=== PATIENT | male | born 1960 | race Caucasian/White ===

== ENCOUNTER 2017-01-19 06:46 | Day surgery (SDC) | payer OTHER ==
[2017-01-19] VITALS (11 sets, daily range): BP systolic 110–140; BP diastolic 61–78; PULSE 53–64; TEMP 36.7–37.2; O2SAT 95–98; Ht 170.2 cm; Wt 123.0 kg
[~2017-01-19] VITALS: Ht 170.2 cm; Wt 123.0 kg
[2017-01-19] MEDS ORDERED: FENT1DIS85 TOP (07:54)
[2017-01-19] MEDS ORDERED: HYDR-3763 PO (07:54)
[2017-01-19] MEDS ORDERED: FENO134C2 PO (07:54)
[2017-01-19] MEDS ORDERED: FNTTP50 TD (07:54)
[2017-01-19] MEDS ORDERED: LISI-725 PO (07:54)
[2017-01-19] MEDS ORDERED: VENL150T33 PO (07:54)
[2017-01-19] MEDS ORDERED: ASPI325T45 PO (07:54)
[2017-01-19] MEDS ORDERED: TAMS0.4C38 PO (07:54)
[2017-01-19] MEDS ORDERED: ATOR-22 PO (07:54)
[2017-01-19] MEDS ORDERED: SOTA80TA PO (07:54)
--- NOTE | 2017-01-19 10:59 | Discharge Instructions ---
Discharge Instructions Procedure Procedure Date: Jan 19, 2017. Reason for visit: Lumbar Back Pain. Discharge Discharge Date: Jan 19, 2017. Discharge Diagnosis: Lumbar back pain Instructions Activity Recommendations: 1 Day-May resume regular activity, 48 Hours of decreased exertion, 1 Day with no exercise/sex/sports, 1 Day with no driving/ machine use Return to School/Work: limitations (light activity x 48 hours) Recommended Home Diet: Resume Previous Diet Provider Instructions: Fluoroscopic guided lumbar puncture was performed at the L4 laminectomy level. Once intrathecal positioning was confirmed iodinated contrast was injected and the patient underwent CT myelogram of the lumbar spine. The procedure was well tolerated and without immediate complication. ACTIVITY RECOMMENDATIONS: * Rest today. * Resume regular activity in one day. MEDICATIONS: * May take Tylenol or Ibuprofen as needed for pain. DIET: * Resume previous diet. SPECIAL CARE INSTRUCTIONS: Call your doctor if: * Temperature above 101 degrees F. * Pain not relieved by pain medicine ordered. * Increased drainage or redness from incision. * Notify your doctor with any questions or concerns. Call your doctor or go to the nearest Emergency Department if you experience: * Increased chest pain or shortness of breath. FOLLOW UP VISIT: Follow-up with Referring Physician as scheduled. Allergies Coded Allergies: No Known Allergies (Unverified , 01/19/17) Zora Orlando Recommendations: Call your doctor if: * Temperature above 101 degrees * Pain not relieved by pain medicine ordered * There is increased drainage or redness from any incision * You have any unanswered questions or concerns. Your Doctors Instructions noted above were prepared by provider Lalo Wilson. Patient Signature Section: Patient Instructions Signature Page Edward Tao Patient (or Guardian) Signature/Date: I have read and understand the instructions given to me by my caregivers. Caregiver/RN/Doctor Signature/Date: The above-named patient and/or guardian has received patient instructions on this date. + Original Patient Signature Page (only) stays with chart. Please make copy for patient.
[2017-01-19] MEDS ORDERED: ACETAMINOPHEN 500 MG TAB PO PRN (11:00)
--- NOTE | 2017-01-19 11:53 | DIAGNOSTIC IMAGING REPORT ---
FLUOROSCOPIC GUIDED LUMBAR PUNCTURE CLINICAL HISTORY: Low back pain. Lumbar puncture for CT myelogram. PROCEDURE: The risks, benefits, and alternatives to the procedure is discussed with the patient who voiced understanding. Written informed consent was obtained. The patient was placed prone on the fluoroscopy table. The lower back was prepped and draped in the usual sterile fashion. 1% lidocaine was used for local anesthesia. A 22-gauge spinal needle was inserted into the L4 laminectomy space, and intrathecal positioning was confirmed by return of cerebrospinal fluid into the hub of the needle. Approximately 15 cc of Isovue 200 was then injected into the thecal sac under fluoroscopic guidance. The patient tolerated the procedure well and there were no immediate complications. The patient was then transported CT for CT myelogram. Fluoroscopy time: 0.4 minutes. IMPRESSION: Successful fluoroscopic guided lumbar puncture with injection of intrathecal contrast for CT myelogram as above. There were no immediate complications. Electronically signed by: Lalo Wilson M.D. 01/19/2017 11:52 AM Dictated Date/Time: 01/19/2017 11:49 AM
--- NOTE | 2017-01-19 12:35 | DIAGNOSTIC IMAGING REPORT ---
CT MYELOGRAM OF THE LUMBAR SPINE CLINICAL HISTORY: Chronic low back pain. COMPARISON STUDY: No priors. TECHNIQUE: CT myelogram of the lumbar spine is performed following the intrathecal administration of iodinated contrast. Images were acquired from the lower thoracic spine to the sacrum and reviewed in the axial, sagittal, and coronal planes. A dose lowering technique was utilized adhering to the principles of ALARA. CT DOSE: 2184.62 mGy.cm FINDINGS: Lumbar spine: The skeletal structures are osteopenic. There is no evidence of fracture. Vertebral body height and alignment are maintained throughout the lumbar spine. There are postoperative changes from a laminectomy and posterior fusion with interposition bone graft seen from L3 to L5. Interpedicular screws are present at all levels. The orthopedic hardware appears intact. The transverse processes are intact. Small anterior osteophytes are seen from L1 through L3. Advanced degenerative endplate sclerosis is seen at L1-L2 and L2-L3. No lytic or blastic lesion is seen. There is a hemitransitional left lumbosacral segment. Intervertebral discs: There is advanced disc space narrowing at L2-L3, with moderate disc space narrowing at L1-L2. Postoperative changes suggested at the L4-L5 disc. Mild disc space narrowing is seen at the remaining levels. No large herniation is identified. Spinal cord: The central canal is well opacified with iodinated contrast. The spinal cord is suboptimally assessed by CT but is normal in morphology. The conus medullaris terminates at the level of L1. The nerve roots of the cauda equina are normal in morphology. Spinal stimulator leads are partially visualized and enter the central canal in the thoracic region. T12-L1: Unremarkable. L1-L2: There is minimal posterior disc bulge. The central canal and neural foramina are patent. L2-L3: The central canal is patent. Facet arthropathy causes moderate right neural foraminal stenosis. L3-L4: The central canal is clear. Facet arthropathy causes moderate right-sided neural foraminal stenosis. L4-L5: The central canal is widely patent. Facet arthropathy causes moderate right and mild left neural foraminal stenosis. L5-S1: There is mild narrowing of the central canal, likely on a congenital basis. Facet arthropathy causes severe left and [id number] right neural foraminal stenosis. Sacrum: Visualized sacrum and bony pelvis appear intact. Mild degenerative change and vacuum phenomenon is noted in the sacroiliac joints. Soft tissues: There is fatty atrophy of the paraspinous musculature. Atherosclerotic calcification is noted in the abdominal aorta. The partially-imaged retroperitoneal structures are otherwise grossly unremarkable but incompletely evaluated. IMPRESSION: 1. No acute bony abnormality is identified in the lumbar spine. 2. Osteopenia and postoperative change as discussed above. The orthopedic hardware appears intact. 3. There is no evidence of disc herniation or significant compromise of the central canal. 4. Degenerative change as discussed above. See discussion for detailed [id number] analysis. Dictated: 01/19/2017 11:54 AM Transcribed: 01/19/2017 12:34 PM Annabelle Electronically signed by: Lalo Wilson M.D. 01/19/2017 1:01 PM Dictated Date/Time: 01/19/2017 11:54 AM
== END 2017-01-19 15:10 | disposition home or self-care (01) ==
LOC: C.ACU 06:46
PROVIDERS: ATTEND Orthopaedic Surgery Orthopaedic Surgery of the Spine
DX: M54.5 Low back pain (principal)

== ENCOUNTER 2024-02-15 10:44 | Observation (INO) ==
[2024-02-15 11:38] LABS: Base Excess VBG -2.2 mEq/L; HCO3 VBG 23 mmol/L; Oxygen Saturation VBG 80.8 %; PCO2 VBG 41 mmHg (38-50); PO2 VBG 46 mmHg; pH VBG 7.36 (7.36-7.41)
[2024-02-15 11:40] LABS: Basophils # (auto) 0.05 K/uL (0.00-0.20); Basophils % (auto) 0.6 %; Eosinophils # (auto) 0.01 K/uL (0.00-0.50); Eosinophils % (auto) 0.1 %; Hematocrit (blood only) 44.7 % (42.0-52.0); Immature Granulocytes # (auto) 0.08 K/uL (0.01-0.20); Lymphocytes # (auto) 1.34 K/uL (1.20-3.40); Lymphocytes % (auto) 16.6 %; Mean Corpuscular Hemoglobin 32.8 pg (25.0-34.0); Mean Corpuscular Hgb Conc 35.8 g/dL (32.0-36.0); Mean Corpuscular Volume 91.6 fL (80.0-100.0); Mean Platelet Volume 10.7 fL (9.4-12.4); Monocytes # (auto) 0.83 K/uL (0.11-0.59); Monocytes % (auto) 10.3 %; Neutrophils # (auto) 5.78 K/uL (1.40-6.50); Neutrophils % (auto) 71.4 %; Platelet Count 197 K/uL (130-400); RDW Coefficient of Variation 12.8 % (11.5-14.5); RDW Standard Deviation 42.7 fL (36.4-46.3); Red Blood Count 4.88 M/uL (4.70-6.10); White Blood Count 8.09 K/ul (4.8-10.8)
--- NOTE | 2024-02-15 11:41 | Emergency Department Note ---
Impression & Plan Pneumonia, COPD (chronic obstructive pulmonary disease), Pulmonary nodules, Cough with hemoptysis ED Provider Note NAME: DAVE MCCABE AGE: 63 SEX: M : 1960 ARRIVES VIA: Walk-In INFORMANT: Patient, ED PROVIDER(S): Dave Barnes DO CHIEF COMPLAINT: Coughing HPI: The patient is a 63-year-old male who presented to the emergency department for an evaluation of cough and difficulty breathing. The patient was seen in our facility recently for similar complaints. At that time he was diagnosed with a pneumonia by CAT scan. He was placed on antibiotics. It was recommended that he stay in the hospital for inpatient management after discussion with pulmonary but the patient was requesting to be discharged home. He had a follow-up appointment with pulmonary today and continues to have taiwo mops his. He was advised to come the emergency department for further evaluation. He states that he has been compliant with the outpatient medications including the antibiotics. He denies having any dizziness. He denies having any chest pain or leg swelling. ROS: See above HPI for pertinent positives & negatives. A total of 10 systems reviewed and were otherwise negative. PAST MEDICAL HISTORY: See Below PAST SURGICAL HISTORY: See Below FAMILY HISTORY: See Below SOCIAL HISTORY: See Below HOME MEDICATIONS: See Below ALLERGIES: See Below VITALS: See Below PHYSICAL EXAMINATION: GENERAL: Patient is awake alert in no acute distress patient is resting comfortably and showing no signs of anxiety EYES: The conjunctivae are clear. The pupils are round and reactive. EARS, NOSE, MOUTH AND THROAT: The nose is without any evidence of any deformity. Mucous membranes are moist. Tongue is midline. NECK: The neck is nontender and supple. RESPIRATORY: Diminished breath sounds are noted at the right base. There is no tachypnea or conversational dyspnea. CARDIOVASCULAR: Regular rate and rhythm noted there no murmurs rubs or gallops normal S1 normal S2. GASTROINTESTINAL: The abdomen is soft. Abdomen is nontender. MUSCULOSKELETAL/EXTREMITIES: There is no evidence of gross deformity full range of motion is noted in the hips and shoulders. SKIN: There is no obvious evidence of any rash. There are no petechiae, pallor or cyanosis noted. NEUROLOGIC: Patient is awake alert and oriented x3 MEDICAL DECISION MAKING: The patient is a 63-year-old male who presented to the emergency department for an evaluation of hemoptysis and cough. The patient was seen in our facility recently for similar complaints. At that time he was diagnosed with a pneumonia. He was started on antibiotics. I did discuss his condition at that time with pulmonary. They requested that the patient stay in the hospital for inpatient management but at that time the patient was not amenable to staying in the hospital. He was discharged to home at that time and states he has been compliant with his outpatient medications. He presents back today because of ongoing symptoms. He was evaluated by pulmonary and told to come back to the emergency department for admission and possible coloscopy. I discussed the patient's laboratory and radiographic studies with him. I discussed his condition with the on-call [facility]. I will defer antibiotic choice to them. The patient's vital signs and laboratory workup was reassuring. Triage Nursing notes reviewed. Prior medical records reviewed Vital Signs: reviewed and remarkable for no significant abnormalities Differential diagnosis: Reactive airway disease, pneumonia, pneumothorax, COPD, CHF, infections, cardiac ischemia, pulmonary embolism, musculoskeletal, gastrointestinal, as well as other pathologies. ER treatment provided: See below Diagnostics interpreted by me: ECG: EKG was obtained in the emergency department. My interpretation is normal sinus rhythm at 60 bpm. There is no ectopy. There was no acute ST segment abnormalities noted. This was compared to a tracing from February 09, 2024. No changes were noted. Cardiac Monitoring: An order was placed for continuous cardiac monitoring. The monitor shows a rate of 62 bpm with sinus rhythm. Laboratory studies: As stated above and show below. Imaging studies: See below. Radiographic imaging was reviewed by myself Consultation(s): I discussed this case with Dr. Pelayo who is on-call for the [facility] group. Past Med/Surg History Problem List Right upper lobe pneumonia Acute UTI (urinary tract infection) (Acute) Pneumonia (Acute) Pulmonary nodules Nicotine dependence Chronic cough Hemoptysis (Acute) Abnormal CT scan, chest Cardiac arrhythmia (Chronic) "IRREGULAR HEARTBEAT" Hyperlipidemia (Chronic) Tobacco abuse (Chronic) CAD (coronary artery disease) (Chronic) History of intravascular stent placement (Chronic) Chronic narcotic use (Chronic) Obesity (Chronic) Battery end of life of spinal cord stimulator (Acute) HTN (hypertension) (Chronic) COPD (chronic obstructive pulmonary disease) (Chronic) Medical History Sleep apnea NON-COMPLIANT Restless leg syndrome Peripheral neuropathy GERD (gastroesophageal reflux disease) Hiatal hernia Gout H/O Osteoarthritis Degenerative disc disease Chronic back pain Surgical History S/P insertion of spinal cord stimulator History of cardiac cath X1 STENT ([facility]) 2010 H/O eye surgery FOREIGN BODY REMOVED FROM BILATERAL EYE (METAL (STEEL) AND A ROCK) History of esophagogastroduodenoscopy (EGD) History of colonoscopy History of carpal tunnel release BILATERAL Family History Mother Family hx of colon cancer Father Family history of diabetes mellitus Grandfather (Paternal) Family history of diabetes mellitus Other Allergies Asthma Cancer Diabetes Emphysema of lung Heart disease Lung disease Denies family history of Tuberculosis Social History Smoking Status: Current every day smoker Tobacco Type: Cigarettes Age Started Using Tobacco: 11; packs per day: 2; Cigarettes Per Day: 2 PPD X 50 YEARS; Second Hand Exposure: No; Do You Dip or Chew Tobacco: No; Hx Alcohol Use: No Hx Substance Use: No Preferred Language: Northern Irish Communication Ability: Effective Visual Impairment: No Limitations Hearing Ability: Normal Restuarant Crew Worker Required: No Beliefs That Will Affect Care: None marital status: Current Living Situation: Spouse current occupational status: unemployed Feels Safe at Home: Yes Assistive Devices: Cane Allergies Allergies Allergy/AdvReac Type Severity Reaction Status Date / Time Penicillins Allergy rash Verified 02/13/24 11:19 Home Meds Home Medications Medication Instructions Recorded Confirmed aspirin 325 mg tablet,delayed 325 mg PO QAM 11/21/18 02/13/24 release atorvastatin 20 mg tablet 20 mg PO HS 11/21/18 02/13/24 ezetimibe 10 mg tablet (Zetia) 10 mg PO HS 11/21/18 02/13/24 hydrocodone 10 mg-acetaminophen 1 tab PO BID PRN Pain 11/21/18 02/13/24 300 mg tablet (Vicodin HP) sotalol 80 mg tablet 80 mg PO BID 11/21/18 02/13/24 tamsulosin 0.4 mg capsule 0.4 mg PO HS 11/21/18 02/13/24 venlafaxine 150 mg 150 mg PO HS 11/21/18 11/30/21 capsule,extended release 24 hr diphenhydramine HCl 25 mg capsule 100 mg PO HS PRN ALLERGIES 02/13/24 02/13/24 (Allergy Relief (diphenhydramine)) lisinopril 20 mg tablet 40 mg PO HS 02/13/24 02/13/24 Previous Rx's Medication Instructions Recorded umeclidinium 62.5 mcg-vilanterol 1 inh inhalation DAILY #60 ea 04/01/23 25 mcg/actuation powdr for inhalation (Anoro Ellipta) cefdinir 300 mg capsule 300 mg PO BID 10 days #20 caps 02/09/24 doxycycline hyclate 100 mg tablet 100 mg PO Q12H 10 days #20 tabs 02/09/24 Results & Data (ED) Vital Signs Vital Signs - 24 hr 02/15/24 10:45 02/15/24 10:48 02/15/24 10:48 Temperature Temperature Source Pulse Rate Pulse Rate [Right Finger] 64 64 Respiratory Rate 20 18 Respiratory Effort / Characteristics Non-Labored Respiratory Depth Normal Respiratory Pattern Regular Blood Pressure Blood Pressure [Right Arm] 131/83 131/83 Blood Pressure Mean Blood Pressure Mean [Right Arm] 99 99 Pulse Oximetry 94 94 94 Oxygen Delivery Method Room Air Room Air Room Air Sepsis Recent Fever Within 48 Hours Sepsis New/Unexplained Change in Mental Status Sepsis Action Taken by Nursing 02/15/24 10:52 02/15/24 11:39 Temperature 36.6 C Temperature Source Skin Pulse Rate 65 61 Pulse Rate [Right Finger] Respiratory Rate 18 Respiratory Effort / Characteristics Respiratory Depth Respiratory Pattern Blood Pressure 144/83 H Blood Pressure [Right Arm] Blood Pressure Mean 103 Blood Pressure Mean [Right Arm] Pulse Oximetry 96 Oxygen Delivery Method Room Air Sepsis Recent Fever Within 48 Hours No Sepsis New/Unexplained Change in Mental Status No Sepsis Action Taken by Nursing No Action Required Home Medications Current Medication List: was personally reviewed by me Laboratory Data Attestation: I reviewed the patient's lab results. 02/15/24 11:24 02/15/24 11:24 Lab Results 02/15/24 Range/Units 11:24 WBC 8.09 (4.8-10.8) K/ul RBC 4.88 (4.70-6.10) M/uL Hgb 16.0 (14.0-18.0) g/dl Hct 44.7 (42.0-52.0) % MCV 91.6 (80.0-100.0) fL MCH 32.8 (25.0-34.0) pg MCHC 35.8 (32.0-36.0) g/dL RDW Std Deviation 42.7 (36.4-46.3) fL RDW Coeff of Ric 12.8 (11.5-14.5) % Plt Count 197 (130-400) K/uL MPV 10.7 (9.4-12.4) fL Immature Gran % (Auto) 1.0 % Neut % (Auto) 71.4 % Lymph % (Auto) 16.6 % [place] % (Auto) 10.3 % Eos % (Auto) 0.1 % Baso % (Auto) 0.6 % Neut # (Auto) 5.78 (1.40-6.50) K/uL Lymph # (Auto) 1.34 (1.20-3.40) K/uL [place] # (Auto) 0.83 H (0.11-0.59) K/uL Eos # (Auto) 0.01 (0.00-0.50) K/uL Baso # (Auto) 0.05 (0.00-0.20) K/uL Immature Gran # (Auto) 0.08 (0.01-0.20) K/uL PT 10.0 (9.0-12.0) Seconds INR 0.9 (0.9-1.1) APTT 27 (21-31) Seconds PTT Ratio 1.0 VBG pH 7.36 (7.36-7.41) VBG pCO2 41 (38-50) mmHg VBG pO2 46 mmHg VBG HCO3 23 mmol/L VBG O2 Saturation 80.8 % VBG Base Excess -2.2 mEq/L Sodium 136 (136-145) mmol/L Potassium 4.1 (3.5-5.1) mmol/L Chloride 105 (98-107) mmol/L Carbon Dioxide 24 (21-32) mmol/L Anion Gap 7 (3-11) BUN 20 (6-23) mg/dl Creatinine 0.72 (0.6-1.4) mg/dl Est Cr Clr Drug Dosing 139.5 ml/min Est GFR ( Amer) 114.3 ml/min Est GFR (Non-Af Amer) 98.6 ml/min BUN/Creatinine Ratio 27.8 H (10-20) Glucose 97 (70-99(Fasting)) mg/dl Lactate 0.8 (0.4-2.0) mmol/L Calcium 9.3 (8.6-10.3) mg/dl Magnesium 1.7 (1.7-2.4) mg/dl Total Bilirubin 0.5 (0.2-1.0) mg/dl Direct Bilirubin 0.1 (0-0.2) mg/dl AST 20 (13-39) U/L ALT 30 (7-52) U/L Alkaline Phosphatase 80 (34-104) U/L Troponin I High Sens 10.9 (0-20) pg/ml Total Protein 7.1 (6.0-8.3) gm/dl Albumin 4.1 (3.4-5.0) gm/dl Procalcitonin 0.02 (0-0.5) ng/ml Blood Type A Positive Antibody Screen NEGATIVE Imaging Data Attestation: I personally reviewed and interpreted this imaging study as follows: My Impression: 1 view chest x-ray was obtained in the emergency department. My interpretation is no free air, infiltrate noted on the right lung field, final report below. Radiologist's Impression: Chest X-Ray 02/15/24 10:48 XR chest 1V portable HISTORY: Sepsis COMPARISON: Chest CTA 02/09/2024. FINDINGS: No pneumothorax. The cardiac silhouette remains mildly enlarged. Thoracic spinal stimulator leads in the right shoulder prosthesis are again noted. Patchy right upper lobe airspace opacities are again noted and appear to have slightly improved. There is mild central pulmonary vascular congestion without overt edema. IMPRESSION: 1. Patchy right upper lobe airspace opacities have slightly improved. 2. Cardiomegaly and mild congestive change. ACT 112: Negative or not required by law. Electronically signed by: Wellington Sorenson M.D. 02/15/2024 12:20 PM Discharge Plan Visit Data Chief Complaint: Referred by Doctor Stated Complaint: COUGHING UP BLOOD, REF BY DOC ED Provider: Dave Barnes Prescriptions Prescriptions: No Action tamsulosin 0.4 mg capsule 0.4 mg PO HS sotalol 80 mg tablet 80 mg PO BID venlafaxine 150 mg capsule,extended release 24hr 150 mg PO HS ezetimibe [Zetia] 10 mg tablet 10 mg PO HS atorvastatin 20 mg tablet 20 mg PO HS hydrocodone-acetaminophen [Vicodin HP] 10-300 mg tablet 1 tab PO BID PRN (Reason: Pain) aspirin 325 mg tablet,delayed release (DR/EC) 325 mg PO QAM lisinopril 20 mg tablet 40 mg PO HS Anoro Ellipta 62.5-25 mcg/actuation blister with device 1 inh inhalation DAILY Qty: 60 3RF diphenhydramine HCl [Allergy Relief(diphenhydramin)] 25 mg capsule 100 mg PO HS PRN (Reason: ALLERGIES) cefdinir 300 mg capsule 300 mg PO BID 10 Days Qty: 20 0RF doxycycline hyclate 100 mg tablet 100 mg PO Q12H 10 Days Qty: 20 0RF Discharge Problem:
[2024-02-15 11:58] LABS: Albumin Level 4.1 gm/dl (3.4-5.0); BUN Creatinine Ratio 27.8 (10-20); Bilirubin Direct 0.1 mg/dl (0-0.2); Bilirubin,Total 0.5 mg/dl (0.2-1.0); Calcium 9.3 mg/dl (8.6-10.3); Creatinine Clr Calc Pharmacy 139.5 ml/min; Est GFR (African American) 114.3 ml/min; Est GFR (Non-African American) 98.6 ml/min; Magnesium 1.7 mg/dl (1.7-2.4); Potassium 4.1 mmol/L (3.5-5.1); Total Protein 7.1 gm/dl (6.0-8.3)
[2024-02-15 12:04] LABS: Troponin I High Sensitivity 10.9 pg/ml (0-20)
[2024-02-15 12:14] LABS: INR 0.9 (0.9-1.1); Partial Thromboplastin Time 27 Seconds (21-31)
--- NOTE | 2024-02-15 12:21 | XRay Report ---
XR chest 1V portable HISTORY: Sepsis COMPARISON: Chest CTA 02/09/2024. FINDINGS: No pneumothorax. The cardiac silhouette remains mildly enlarged. Thoracic spinal stimulator leads in the right shoulder prosthesis are again noted. Patchy right upper lobe airspace opacities a re again noted and appear to have slightly improved. There is mild central pulmonary vascular congest ion without overt edema. IMPRESSION: 1. Patchy right upper lobe airspace opacities have slightly improved. 2. Cardiomegaly and mild congestive change. ACT 112: Negative or not required by law. Electronically signed by: Wellington Sorenson M.D. 02/15/2024 12:20 PM
--- NOTE | 2024-02-15 12:50 | History & Physical Report ---
Date of Service February 15, 2024 Assessment & Plan (1) Cough with hemoptysis: Plan: Stop aspirin Consult pulmonology for consideration of bronchoscopy, NPO after midnight No risk factors for TB to warrant testing as discussed with pulmonology (2) Right upper lobe pneumonia: Plan: Diagnosed 02/08 Procalcitonin negative and CXR improving therefore will continue on his prior prescription of cefdinir and doxycycline (3) Tobacco abuse: Plan: Declines nicotine patch Plan Hypertension - continue amlodipine and lisinopril BPH - continue tamsulosin Paroxysmal atrial fibrillation - no anticoagulation due to hemoptysis, continue sotalol Chronic gout - no acute flare, continue allopurinol Coronary artery disease - continue atorvastatin Anxiety - continue venlafaxine COPD - no acute flare, continue maintenance inhalers Chronic back pain - continue routine pain regimen VTE Prophylaxis - chemical contraindicated, SCDs Diet - heart healthy, NPO after midnight Disposition - admit to med/tele Admission and Anticipated Discharge Date Admission Date: February 15, 2024 History of Present Illness Chief Complaint: Hemoptysis Primary Care Provider: DO Edward Cruzaver is a 63 year old male who presents to the ER on advice of his electric refrigerator servicer due to ongoing hemoptysis. He was recently seen in the emergency room on February 08 for taiwo hemoptysis with a diagnosis of right upper lobe pneumonia at that time. Admission was recommended with IV antibiotics however the patient declined and was discharged on cefdinir and doxycycline for 10 days which she is still taking. Hemoptysis initially improving when he followed up with pulmonology. But then worse again for last 2 days therefore advised by his electric refrigerator servicer to return to the ER for consideration of bronchoscopy. He reports hemoptysis now ongoing for the last 3 weeks. However this has been and intermittent issue for the last 3-4 years but this episode has stayed a lot longer. No fever or chills. No chest pain. Shortness of breath at baseline. He continues to smoke 1 pack/day. No known close contact with patient's of untreated respiratory TB, no illicit drug use, patient is not a healthcare worker, resident or employee of a homeless ch[facility] at correctional facility. Allergies Allergy/AdvReac Type Severity Reaction Status Date / Time Penicillins Allergy rash Verified 02/15/24 13:26 Home Medications Medication Instructions Recorded Confirmed Type aspirin 325 mg tablet,delayed 325 mg PO QAM 11/21/18 02/15/24 History release atorvastatin 20 mg tablet 20 mg PO HS 11/21/18 02/15/24 History ezetimibe 10 mg tablet (Zetia) 10 mg PO HS 11/21/18 02/15/24 History sotalol 80 mg tablet 80 mg PO BID 11/21/18 02/15/24 History tamsulosin 0.4 mg capsule 0.4 mg PO HS 11/21/18 02/15/24 History venlafaxine 150 mg 150 mg PO HS 11/21/18 02/15/24 History capsule,extended release 24 hr umeclidinium 62.5 mcg-vilanterol 1 inh inhalation DAILY #60 ea 04/01/23 02/15/24 Rx 25 mcg/actuation powdr for inhalation (Anoro Ellipta) cefdinir 300 mg capsule 300 mg PO BID 10 days #20 caps 02/09/24 02/15/24 Rx doxycycline hyclate 100 mg tablet 100 mg PO Q12H 10 days #20 tabs 02/09/24 02/15/24 Rx diphenhydramine HCl 25 mg capsule 100 mg PO HS PRN ALLERGIES 02/13/24 02/15/24 History (Allergy Relief (diphenhydramine)) allopurinol 100 mg tablet 100 mg PO QAM 02/15/24 02/15/24 History amlodipine 10 mg tablet 10 mg PO QAM 02/15/24 02/15/24 History hydrocodone 10 mg-acetaminophen 1 tab PO TID PRN Pain 02/15/24 02/15/24 History 325 mg tablet lisinopril 40 mg tablet 40 mg PO HS 02/15/24 02/15/24 History Past Med/Surg History Problem List (Updated 02/15/24 @ 12:56 by Background Daemon) Cough with hemoptysis (Acute) Pulmonary nodules (Acute) COPD (chronic obstructive pulmonary disease) (Acute) Pneumonia (Acute) Right upper lobe pneumonia Acute UTI (urinary tract infection) (Acute) Pneumonia (Acute) Pulmonary nodules Nicotine dependence Chronic cough Hemoptysis (Acute) Abnormal CT scan, chest Cardiac arrhythmia (Chronic) "IRREGULAR HEARTBEAT" Hyperlipidemia (Chronic) Tobacco abuse (Chronic) CAD (coronary artery disease) (Chronic) History of intravascular stent placement (Chronic) Chronic narcotic use (Chronic) Obesity (Chronic) Battery end of life of spinal cord stimulator (Acute) HTN (hypertension) (Chronic) COPD (chronic obstructive pulmonary disease) (Chronic) Medical History Sleep apnea NON-COMPLIANT Restless leg syndrome Peripheral neuropathy GERD (gastroesophageal reflux disease) Hiatal hernia Gout H/O Osteoarthritis Degenerative disc disease Chronic back pain Surgical History S/P insertion of spinal cord stimulator History of cardiac cath X1 STENT ([facility]) 2010 H/O eye surgery FOREIGN BODY REMOVED FROM BILATERAL EYE (METAL (STEEL) AND A ROCK) History of esophagogastroduodenoscopy (EGD) History of colonoscopy History of carpal tunnel release BILATERAL Family History Mother Family hx of colon cancer Father Family history of diabetes mellitus Grandfather (Paternal) Family history of diabetes mellitus Other Allergies Asthma Cancer Diabetes Emphysema of lung Heart disease Lung disease Denies family history of Tuberculosis Social History Smoking Status: Current every day smoker Tobacco Type: Cigarettes Age Started Using Tobacco: 11; packs per day: 2; Cigarettes Per Day: 1 &1/2 packs; Second Hand Exposure: No; Do You Dip or Chew Tobacco: No; Hx Alcohol Use: Yes Alcohol type: beer Hx Substance Use: No Preferred Language: Kazakh Communication Ability: Effective Visual Impairment: No Limitations Hearing Ability: Normal Pipeline Welder Required: No Beliefs That Will Affect Care: None marital status: Current Living Situation: Significant Other current occupational status: unemployed Feels Safe at Home: Yes Assistive Devices: Cane Review of Systems Review of Systems: All systems reviewed & are unremarkable except as noted in HPI & below Physical Exam Constitutional: WD/WN, vitals as above ENMT: external ear and nose normal, oropharynx normal Respiratory: normal respiratory effort, lungs clear to auscultation Cardiovascular: RRR, no murmur, no edema Gastrointestinal (Abdomen): normal bowel sounds, soft, nontender, no hepatosplenomegaly Musculoskeletal: no cyanosis or clubbing, extremities motor strength 5/5 Skin: no rashes, warm and dry Psychiatric: A+Ox3, euthymic affect Results & Data Results & Data Vital Signs (Past 12 Hours) Vital Signs Temp Pulse Pulse Resp BP BP Pulse Ox 02/15/24 11:39 61 02/15/24 10:52 36.6 C 65 18 144/83 H 96 02/15/24 10:48 64 18 131/83 94 02/15/24 10:48 94 02/15/24 10:45 64 20 131/83 94 O2 Del Method 02/15/24 11:39 02/15/24 10:52 Room Air 02/15/24 10:48 Room Air 02/15/24 10:48 Room Air 02/15/24 10:45 Room Air Laboratory Results Abnormal lab results 02/15/24 Range/Units 11:24 [place] # (Auto) 0.83 H (0.11-0.59) K/uL BUN/Creatinine Ratio 27.8 H (10-20) Diagnostic Findings XR chest 1V portable HISTORY: Sepsis COMPARISON: Chest CTA 02/09/2024. FINDINGS: No pneumothorax. The cardiac silhouette remains mildly enlarged. Thoracic spinal stimulator leads in the right shoulder prosthesis are again noted. Patchy right upper lobe airspace opacities are again noted and appear to have slightly improved. There is mild central pulmonary vascular congestion without overt edema. IMPRESSION: 1. Patchy right upper lobe airspace opacities have slightly improved. 2. Cardiomegaly and mild congestive change. Medications Administered ER medications given: None ECG Rate (beats per minute): 60 Rhythm: normal sinus Findings: no acute ischemic change Comparison ECG Date: from (February 09, 2024) Change: no significant change Code Status & VTE Plan Code Status Full VTE Prophylaxis Plan VTE Prophylaxis will be ordered: Yes PG Care Time/CCT Total # of Minutes Spent Total Time Spent with Patient: Total time spent is greater than 50% in coordination of care (as documented) at patient's floor/unit and/or counseling patient: Coding Level of Care Code 09899 INT INP/OBS CARE 2/55MIN Diagnoses Cough with hemoptysis R04.2 Right upper lobe pneumonia J18.9 Tobacco abuse Z72.0
--- NOTE | 2024-02-15 13:03 | Electrocardiogram Report ---
Test Reason : Blood Pressure : */* mmHG Vent. Rate : 60 BPM Atrial Rate : 60 BPM P-R Int : 194 ms QRS Dur : 94 ms QT Int : 452 ms P-R-T Axes : 63 17 81 degrees QTcB Int : 452 ms Normal sinus rhythm Normal ECG When compared with ECG of 09-Feb-2024 11:03, No significant change was found Confirmed by Eugene Zayas ([id number]) on 02/15/2024 1:03:37 PM Referred By: Confirmed By: Eugene Zayas
--- NOTE | 2024-02-15 14:22 | Pulmonary Consultation ---
Date of Consultation February 15, 2024 Assessment & Plan (1) Cough with hemoptysis: (2) Pulmonary nodules: (3) COPD (chronic obstructive pulmonary disease): (4) Right upper lobe pneumonia: (5) Chronic cough: Plan CTA chest 02/09/2024 personally reviewed: Mosaicism appreciated bilaterally upper and lower lobes Consolidative process appreciated in the right upper lobe anteriorly Multiple pulmonary nodules appreciated bilaterally No significant mediastinal lymphadenopathy --Hemoptysis Has been going on for a while but got worse in the last 3-4 weeks Differential includes irritable lobe pneumonia bronchitis Patient not on any blood thinners at home PT/INR/PTT within normal limit, platelets within normal limit -- Right upper lobe pneumonia Diagnosed 02/09/2024, was discharged on Ceftin as well as doxycycline for 10 days Continue with antibiotics Procalcitonin negative COVID-19, influenza A/B as well as RSV negative on 02/09/2024 --COPD On Anoro at home --Chronic opioid use for lower back pain Takes up to 3 pills a day Plan: Cough suppressant medication [id number] Hold anticoagulation including aspirin for bronchoscopy tomorrow. Given the history of opioid use, it is better for the patient to have anesthesia involved. Will do the bronchoscopy in OR For pneumonia recommend completing the course of cefdinir for 10-14 days since 02/09/2024 Please note the above document was generated using voice recognition software. It may contain grammatical, syntax or spelling errors.Any formal questions or concerns about the content, text or information contained within the body of this dictation should be directly addressed to the provider for clarification. History of Present Illness History of Present Illness 63-year-old male comes to the hospital with complaints of hemoptysis Past medical history: COPD, anxiety/depression, hypertension, dyslipidemia Pulmonary consulted for the same At the time of examination patient was not in any respiratory distress. Saturation was 96% on room air, heart rate in the mid 60s with systolic blood pressure in the 140s He stated that he has been having issues with hemoptysis going on 2 years but it has gotten worse in the last 3-4 weeks. He is bringing up copious amount of bright red blood whenever he coughs. He was given doxycycline when he came to the ER on 02/09/2024, he has finished 6 days of it and has 4 days still remaining. Denies any chest pain. Denies any headache No fever or chills right now No unusual headache or blurry vision Denies any unintentional weight loss Social history:> [id number] smoking history, currently smoking a pack a day. Used to work in [employer] Allergies Allergy/AdvReac Type Severity Reaction Status Date / Time Penicillins Allergy rash Verified 02/15/24 13:26 Home Medications Medication Instructions Recorded Confirmed Type aspirin 325 mg tablet,delayed 325 mg PO QAM 11/21/18 02/15/24 History release atorvastatin 20 mg tablet 20 mg PO HS 11/21/18 02/15/24 History ezetimibe 10 mg tablet (Zetia) 10 mg PO HS 11/21/18 02/15/24 History sotalol 80 mg tablet 80 mg PO BID 11/21/18 02/15/24 History tamsulosin 0.4 mg capsule 0.4 mg PO HS 11/21/18 02/15/24 History venlafaxine 150 mg 150 mg PO HS 11/21/18 02/15/24 History capsule,extended release 24 hr umeclidinium 62.5 mcg-vilanterol 1 inh inhalation DAILY #60 ea 04/01/23 02/15/24 Rx 25 mcg/actuation powdr for inhalation (Anoro Ellipta) cefdinir 300 mg capsule 300 mg PO BID 10 days #20 caps 02/09/24 02/15/24 Rx doxycycline hyclate 100 mg tablet 100 mg PO Q12H 10 days #20 tabs 02/09/24 02/15/24 Rx diphenhydramine HCl 25 mg capsule 100 mg PO HS PRN ALLERGIES 02/13/24 02/15/24 History (Allergy Relief (diphenhydramine)) allopurinol 100 mg tablet 100 mg PO QAM 02/15/24 02/15/24 History amlodipine 10 mg tablet 10 mg PO QAM 02/15/24 02/15/24 History hydrocodone 10 mg-acetaminophen 1 tab PO TID PRN Pain 02/15/24 02/15/24 History 325 mg tablet lisinopril 40 mg tablet 40 mg PO HS 02/15/24 02/15/24 History Patient History Medical History Sleep apnea NON-COMPLIANT Restless leg syndrome Peripheral neuropathy GERD (gastroesophageal reflux disease) Hiatal hernia Gout H/O Osteoarthritis Degenerative disc disease Chronic back pain Surgical History S/P insertion of spinal cord stimulator History of cardiac cath X1 STENT ([facility]) 2010 H/O eye surgery FOREIGN BODY REMOVED FROM BILATERAL EYE (METAL (STEEL) AND A ROCK) History of esophagogastroduodenoscopy (EGD) History of colonoscopy History of carpal tunnel release BILATERAL Family History Mother Family hx of colon cancer Father Family history of diabetes mellitus Grandfather (Paternal) Family history of diabetes mellitus Other Allergies Asthma Cancer Diabetes Emphysema of lung Heart disease Lung disease Denies family history of Tuberculosis Social History Smoking Status: Current every day smoker Tobacco Type: Cigarettes Age Started Using Tobacco: 11; packs per day: 2; Cigarettes Per Day: 2 PPD X 50 YEARS; Second Hand Exposure: No; Do You Dip or Chew Tobacco: No; Hx Alcohol Use: No Hx Substance Use: No Preferred Language: Armenian Communication Ability: Effective Visual Impairment: No Limitations Hearing Ability: Normal Risk Compliance Analyst Required: No Beliefs That Will Affect Care: None marital status: Current Living Situation: Spouse current occupational status: unemployed Feels Safe at Home: Yes Assistive Devices: Cane Review of Systems 2 Review of Systems: All systems reviewed & are unremarkable except as noted in HPI & below Physical Exam 2 Physical Exam: Constitutional: No acute distress HEENT: EOMI, PERRLA Respiratory system: Good air entry bilaterally, no wheeze, no rhonchi, no crackles CVS: S1-S2 positive, no murmurs or gallops Abdomen: Soft, nontender, nondistended, positive bowel sounds x4, obese Extremities: +2 pulses bilaterally radialis/ dorsalis pedis, no cyanosis, no edema Neuro: Awake alert oriented x3 Psych: Normal mood and affect G/U: No Thomas Skin: no rashes, warm and dry Lymphatic: no cervical or axillary lymphadenopathy Results & Data Results & Data Vital Signs (Past 12 Hours) Vital Signs Temp Pulse Pulse Resp BP BP Pulse Ox 02/15/24 11:39 61 02/15/24 10:52 36.6 C 65 18 144/83 H 96 02/15/24 10:48 64 18 131/83 94 02/15/24 10:48 94 02/15/24 10:45 64 20 131/83 94 O2 Del Method 02/15/24 11:39 02/15/24 10:52 Room Air 02/15/24 10:48 Room Air 02/15/24 10:48 Room Air 02/15/24 10:45 Room Air Laboratory Results 02/15/24 11:24 02/15/24 11:24 PG Care Time/CCT Total # of Minutes Spent Total Time Spent with Patient: Total time spent is greater than 50% in coordination of care (as documented) at patient's floor/unit and/or counseling patient: Coding Level of Care Code 54901 INT INP/OBS CARE 3/75MIN Diagnoses Cough with hemoptysis R04.2 Pulmonary nodules R91.8 COPD (chronic obstructive pulmonary disease) J44.9 Right upper lobe pneumonia J18.9 Chronic cough R05.3
[2024-02-15] MEDS ORDERED: ACETAMINOPHEN 325 MG TAB PO PRN (15:43)
[2024-02-15] MEDS ORDERED: diphenhydrAMINE Capsule 25 MG CAP PO PRN (15:54)
[2024-02-15] MEDS ORDERED: HYDROcodone/ACETAMINOPHEN 10/325 TAB PO PRN (15:54)
[2024-02-15] MEDS: VENLAFAXINE HCL XR 150 MG CAPXR PO SCH (22:12)
[2024-02-15] MEDS: TAMSULOSIN HCL 0.4 MG CAP PO SCH (22:16)
[2024-02-15] MEDS: lisinopril 40 MG TAB PO SCH (22:17)
[2024-02-15] MEDS: CEFDINIR 300 MG CAP PO SCH (22:17)
[2024-02-15] MEDS: ATORVASTATIN 20 MG TAB PO SCH (22:17)
[2024-02-15] MEDS: SOTALOL HCL 80 MG TAB PO SCH (22:17)
[2024-02-15] MEDS: EZETIMIBE 10 MG TAB PO SCH (22:17)
[2024-02-15] MEDS: DOXYCYCLINE HYCLATE 100 MG CAP PO SCH (22:18)
[2024-02-16] MEDS: guaiFENesin/DEXTROM SYRUP 200MG/20MG 10ML UDC PO SCH (03:10)
--- NOTE | 2024-02-16 07:26 | Hospitalist Progress Note ---
Date of Service February 16, 2024 Assessment & Plan (1) Cough with hemoptysis: Plan: 63 y/o man on aspirin for history of coronary artery disease with remote stent, recently started treatment for RUL pneumonia (doxycycline, cefdinir) on 02/08, admitted with hemoptysis the hemoptysis is an acute on chronic problem he says he has had many episodes over several years but this current episode has been more prolonged than usual. Denies any epistaxis hematemesis or other potential source of bleeding. Has not had any chest pain or dyspnea. He has been followed by Dr. Olvera in pulmonary clinic and he has had screening chest CTs recently in 2022 and December 2023. he does have emphysema with some postinflammatory scarring of the right upper lobe and stable multiple solid pulmonary nodules seen on 12/2023 CT. CTA chest 02/08 negative for pulmonary embolism, limited quality PE study, progressive right upper lobe patchy airspace opacities consistent with any pneumonia. Stop aspirin Consulted pulmonology, bronchoscopy completed today see procedure note, discussed with Dr. Hanson, there was no clear source of bleeding although blood was present bilaterally, biopsies were taken from 2 areas of the right upper lobe 1 may have been a clot versus endobronchial lesion the other was an endobronchial lesion. - Follow-up pathology, cytology, cultures from BAL - multiple rheumatology labs drawn today per Dr. Hanson's recommendations - reviewed follow-up chest x-ray after bronchoscopy, no evidence of pneumothorax No risk factors for TB to warrant testing as discussed with pulmonology Mr. Tao insisted on discharge home today, although I consider this an irregular discharge because I counseled him and rather observe him overnight and make sure that he is stable with respect to his hemoptysis. He says he has had it many times and he is not going to stay here and wait around for results doing nothing. He will complete his oral antibiotics course for pneumonia. I warned him about risks of massive hemoptysis which could include respiratory failure and counseled him to seek immediate medical attention were he to have worsening hemoptysis, chest pain, dyspnea. his was also present. nevertheless I think it is reasonably low risk because no discrete bleeding source was identified on bronchoscopy because of the chronicity of the problem. He has a follow-up appointment scheduled with Dr. Ramirez on 03/12, we will see whether this can be moved up to about 2 weeks from now (2) Right upper lobe pneumonia: Plan: Diagnosed 02/08 Procalcitonin negative and CXR improving therefore will continue on his prior prescription of cefdinir and doxycycline through 02/18 (3) Tobacco abuse: Plan: Declines nicotine patch Counseled cessation Plan CAD - hx stent in 2009. HOLD aspirin until hemoptysis resolved, cont atorvastatin Hypertension - continue amlodipine and lisinopril BPH - continue tamsulosin Paroxysmal atrial fibrillation - no anticoagulation due to hemoptysis, continue sotalol Chronic gout - no acute flare, continue allopurinol Anxiety - continue venlafaxine COPD - no acute flare, continue maintenance inhalers Chronic back pain - continue routine pain regimen JENNY - does not use CPAP Admission and Anticipated Discharge Date Admission Date: February 15, 2024 Subjective I saw Mr. Tao following his bronchoscopy and he states that he continues to have blood-tinged sputum. He says he has had this for many years on and off and this episode is similar however it has been longer lasting than previously. He has a sensation of blood or mucus coming up on the right side of his throat and then he coughs. he does have a longstanding smoking history and continues to smoke. He does not think that the blood is coming from his nasopharynx or oropharynx has not had any epistaxis or hematemesis. He does not have any chest pain and is not short of breath Physical Exam 2 Physical Exam: PHYSICAL EXAMINATION Last 24h vital signs reviewed, see documentation in flowsheet General: comfortable appearing, no distress, sitting on edge of bed HEENT: Normocephalic, atraumatic, pupils round and equal, sclerae anicteric, no conjunctival injection, moist mucus membranes Lungs: Normal respiratory effort. coarse breath sounds right upper lobe greater than left upper lobe no wheezing. frequent coughing with blood-streaked sputum Heart: Regular rate and rhythm, no murmurs. No JVD Abdomen: Soft, nontender, nondistended. Bowel sounds present. Extremities: Warm, dry, well-perfused. trace lower extremity edema. Neuro: Alert and oriented x 4, face symmetric, moves 4 extremities well Psych: Normal affect and behavior Results & Data Results & Data Vital Signs (Past 12 Hours) Vital Signs Temp Pulse Pulse Resp BP Pulse Ox O2 Del Method 02/16/24 03:15 36.3 C L 61 18 122/73 93 Room Air 02/16/24 00:55 36.6 C 63 18 145/76 H 95 Room Air 02/16/24 00:00 63 02/15/24 23:46 Room Air 02/15/24 19:45 37.0 C 60 18 156/80 H 94 Room Air Laboratory Results 02/15/24 11:24 02/15/24 11:24 PG Care Time/CCT Total # of Minutes Spent Total Time Spent with Patient: Total time spent is greater than 50% in coordination of care (as documented) at patient's floor/unit and/or counseling patient: Coding Level of Care Code None Diagnoses Cough with hemoptysis R04.2 Right upper lobe pneumonia J18.9 Tobacco abuse Z72.0
[2024-02-16 07:53] LABS: Basophils # (auto) 0.05 K/uL (0.00-0.20); Basophils % (auto) 0.6 %; Eosinophils # (auto) 0.01 K/uL (0.00-0.50); Eosinophils % (auto) 0.1 %; Hematocrit (blood only) 43.7 % (42.0-52.0); Hemoglobin 15.2 g/dl (14.0-18.0); Immature Granulocytes # (auto) 0.07 K/uL (0.01-0.20); Immature Granulocytes % (auto) 0.9 %; Lymphocytes # (auto) 1.11 K/uL (1.20-3.40); Lymphocytes % (auto) 14.3 %; Mean Corpuscular Hemoglobin 31.9 pg (25.0-34.0); Mean Corpuscular Hgb Conc 34.8 g/dL (32.0-36.0); Mean Corpuscular Volume 91.6 fL (80.0-100.0); Monocytes # (auto) 0.78 K/uL (0.11-0.59); Monocytes % (auto) 10.1 %; Neutrophils # (auto) 5.74 K/uL (1.40-6.50); Platelet Count 189 K/uL (130-400); RDW Coefficient of Variation 12.9 % (11.5-14.5); RDW Standard Deviation 43.8 fL (36.4-46.3); Red Blood Count 4.77 M/uL (4.70-6.10); White Blood Count 7.76 K/ul (4.8-10.8)
--- NOTE | 2024-02-16 08:01 | Pulmonology Progress Note ---
Date of Service February 16, 2024 Assessment & Plan (1) Cough with hemoptysis: (2) Pulmonary nodules: (3) COPD (chronic obstructive pulmonary disease): (4) Right upper lobe pneumonia: (5) Chronic cough: Plan CTA chest 02/09/2024 personally reviewed: Mosaicism appreciated bilaterally upper and lower lobes Consolidative process appreciated in the right upper lobe anteriorly Multiple pulmonary nodules appreciated bilaterally No significant mediastinal lymphadenopathy --Hemoptysis Has been going on for a while but got worse in the last 3-4 weeks Differential includes irritable lobe pneumonia bronchitis Patient not on any blood thinners at home PT/INR/PTT within normal limit, platelets within normal limit -- Right upper lobe pneumonia Diagnosed 02/09/2024, was discharged on Ceftin as well as doxycycline for 10 days Continue with antibiotics Procalcitonin negative COVID-19, influenza A/B as well as RSV negative on 02/09/2024 --COPD On Anoro at home --Chronic opioid use for lower back pain Takes up to 3 pills a day Plan: Cough suppressant medication [id number] For bronchoscopy today in the OR For pneumonia recommend completing the course of cefdinir for 10-14 days since 02/09/2024 Please note the above document was generated using voice recognition software. It may contain grammatical, syntax or spelling errors.Any formal questions or concerns about the content, text or information contained within the body of this dictation should be directly addressed to the provider for clarification. Admission and Anticipated Discharge Date Admission Date: February 15, 2024 Subjective Patient seen and examined at bedside note that he is too weak Still complaining of cough with some hemoptysis No chest pain, no headache, no nausea, no vomiting Has been afebrile and shortness of breath is at baseline Review of Systems 2 Review of Systems: All systems reviewed & are unremarkable except as noted in Subjective Physical Exam 2 Physical Exam: Constitutional: No acute distress HEENT: EOMI, PERRLA Respiratory system: Good air entry bilaterally, no wheeze, no rhonchi, no crackles CVS: S1-S2 positive, no murmurs or gallops Abdomen: Soft, nontender, nondistended, positive bowel sounds x4, obese Extremities: +2 pulses bilaterally radialis/ dorsalis pedis, no cyanosis, no edema Neuro: Awake alert oriented x3 Psych: Normal mood and affect G/U: No Thomas Skin: no rashes, warm and dry Lymphatic: no cervical or axillary lymphadenopathy Results & Data Results & Data Vital Signs (Past 12 Hours) Vital Signs Temp Pulse Pulse Resp BP Pulse Ox O2 Del Method 02/16/24 03:15 36.3 C L 61 18 122/73 93 Room Air 02/16/24 00:55 36.6 C 63 18 145/76 H 95 Room Air 02/16/24 00:00 63 02/15/24 23:46 Room Air Laboratory Results 02/16/24 05:46 PG Care Time/CCT Total # of Minutes Spent Total Time Spent with Patient: Total time spent is greater than 50% in coordination of care (as documented) at patient's floor/unit and/or counseling patient: Coding Level of Care Code 55709 SUB INP/OBS CARE 3/50MIN Diagnoses Cough with hemoptysis R04.2 Pulmonary nodules R91.8 COPD (chronic obstructive pulmonary disease) J44.9 Right upper lobe pneumonia J18.9 Chronic cough R05.3
--- NOTE | 2024-02-16 08:09 | Anesthesiology Consultation ---
Date of Service February 16, 2024 History Surgery Operation Date: 02/16/24 09:45 Proposed Procedures p [facility] Height/Weight Height: 5 ft 7 in Weight: 138.4 kg Allergies Allergy/AdvReac Type Severity Reaction Status Date / Time Penicillins Allergy rash Verified 02/15/24 13:26 Medications Home Medications Medication Instructions Recorded Confirmed Last Taken aspirin 325 mg tablet,delayed 325 mg PO QAM 11/21/18 02/15/24 02/15/24 release atorvastatin 20 mg tablet 20 mg PO HS 11/21/18 02/15/24 02/14/24 ezetimibe 10 mg tablet (Zetia) 10 mg PO HS 11/21/18 02/15/24 02/14/24 sotalol 80 mg tablet 80 mg PO BID 11/21/18 02/15/24 02/15/24 tamsulosin 0.4 mg capsule 0.4 mg PO HS 11/21/18 02/15/24 02/14/24 venlafaxine 150 mg 150 mg PO HS 11/21/18 02/15/24 02/14/24 capsule,extended release 24 hr umeclidinium 62.5 mcg-vilanterol 1 inh inhalation DAILY #60 ea 04/01/23 02/15/24 02/15/24 25 mcg/actuation powdr for inhalation (Anoro Ellipta) cefdinir 300 mg capsule 300 mg PO BID 10 days #20 caps 02/09/24 02/15/24 02/15/24 doxycycline hyclate 100 mg tablet 100 mg PO Q12H 10 days #20 tabs 02/09/24 02/15/24 02/15/24 diphenhydramine HCl 25 mg capsule 100 mg PO HS PRN ALLERGIES 02/13/24 02/15/24 Unknown (Allergy Relief (diphenhydramine)) allopurinol 100 mg tablet 100 mg PO QAM 02/15/24 02/15/24 02/15/24 amlodipine 10 mg tablet 10 mg PO QAM 02/15/24 02/15/24 02/15/24 hydrocodone 10 mg-acetaminophen 1 tab PO TID PRN Pain 02/15/24 02/15/24 Unknown 325 mg tablet lisinopril 40 mg tablet 40 mg PO HS 02/15/24 02/15/24 02/14/24 Active Medications Generic Name Dose Route Start Last Admin Trade Name Ed PRN Reason Stop Dose Admin Atorvastatin Calcium 20 mg 02/15/24 21:00 02/15/24 22:17 Atorvastatin 20 Mg Tab PO 03/16/24 20:59 20 mg HS [place] Administration Cefdinir 300 mg 02/15/24 21:00 02/15/24 22:17 Cefdinir 300 Mg Cap PO 02/19/24 20:59 300 mg BID [place] Administration Protocol Doxycycline Hyclate 100 mg 02/15/24 21:00 02/15/24 22:18 Doxycycline Hyclate 100 Mg Cap PO 02/19/24 20:59 100 mg BID [place] Administration Ezetimibe 10 mg 02/15/24 21:00 02/15/24 22:17 Ezetimibe 10 Mg Tab PO 03/16/24 20:59 10 mg HS [place] Administration Guaifenesin/Dextromethorphan 10 ml 02/15/24 22:00 02/16/24 06:31 Guaifenesin/Dextrom Syrup 200mg/20mg 10ml Udc PO 03/16/24 21:59 10 ml Q8 [place] Administration Lisinopril 40 mg 02/15/24 21:00 02/15/24 22:17 Lisinopril 40 Mg Tab PO 03/16/24 20:59 40 mg HS [place] Administration Sotalol HCl 80 mg 02/15/24 21:00 02/15/24 22:17 Sotalol Hcl 80 Mg Tab PO 03/16/24 20:59 80 mg BID [place] Administration Tamsulosin HCl 0.4 mg 02/15/24 21:00 02/15/24 22:17 Tamsulosin Hcl 0.4 Mg Cap PO 03/16/24 20:59 0.4 mg HS [place] Administration Venlafaxine HCl 150 mg 02/15/24 21:00 02/15/24 22:12 Venlafaxine Hcl Xr 150 Mg Capxr PO 03/16/24 20:59 Not Given HS [place] Past Medical History Medical History Sleep apnea NON-COMPLIANT Restless leg syndrome Peripheral neuropathy GERD (gastroesophageal reflux disease) Hiatal hernia Gout H/O Osteoarthritis Degenerative disc disease Chronic back pain Past Family History Family History Mother Family hx of colon cancer Father Family history of diabetes mellitus Grandfather (Paternal) Family history of diabetes mellitus Other Allergies Asthma Cancer Diabetes Emphysema of lung Heart disease Lung disease Denies family history of Tuberculosis Past Surgical History Surgical History S/P insertion of spinal cord stimulator History of cardiac cath X1 STENT ([facility] [place]) 2010 H/O eye surgery FOREIGN BODY REMOVED FROM BILATERAL EYE (METAL (STEEL) AND A ROCK) History of esophagogastroduodenoscopy (EGD) History of colonoscopy History of carpal tunnel release BILATERAL Social History Smoking Status: Current every day smoker tobacco type: cigarettes Smoking cigarettes per day: 1 &1/2 packs Do You Dip or Chew Tobacco: No Hx Alcohol Use: Yes Alcohol type: beer alcohol intake frequency: 3 or more drinks per day Alcohol Intake Frequency Comment: 15-20/day Hx Substance Use: No substance use type: does not use Physical Exam Vital Signs Last Vital Signs Temp 37 C 02/16/24 08:03 Pulse 63 02/16/24 08:03 Resp 16 02/16/24 08:03 BP 125/80 02/16/24 08:03 Pulse Ox 95 02/16/24 08:03 O2 Del Method Room Air 02/16/24 08:03 Testing Laboratory Results 02/16/24 05:46 PT 10.0 Seconds (9.0-12.0) 02/15/24 11:24 INR 0.9 (0.9-1.1) 02/15/24 11:24 APTT 27 Seconds (21-31) 02/15/24 11:24 Blood Type A Positive 02/15/24 11:24 Antibody Screen NEGATIVE 02/15/24 11:24 02/15/24 Unknown Gram Stain - Final Sputum, Expectorated Sputum Culture - Final Electrocardiogram Findings: + NSR @ Pulmonary Function Test Date: 04/10/23 Findings: + other (normal spirometry; DLCO)
[2024-02-16] MEDS ORDERED: fentaNYL citrate PF 100 MCG/2 ML VIAL ONE (08:12)
[2024-02-16] MEDS ORDERED: MIDAZOLAM HCL 1 MG/ML 2ML VIAL ONE (08:12)
[2024-02-16] MEDS ORDERED: LIDOCAINE 2% 2 ML VIAL/AMP(20MG/ML) INFIL ONE ×2 (08:16→09:11)
[2024-02-16] MEDS ORDERED: PROPOFOL IV EMULSION 10 MG/ML 20 ML VIAL IV ONE ×2 (08:16→09:11)
[2024-02-16 08:17] LABS: BUN Creatinine Ratio 22.9 (10-20); Calcium 8.8 mg/dl (8.6-10.3); Creatinine Clr Calc Pharmacy 143.3 ml/min; Est GFR (African American) 115.6 ml/min; Est GFR (Non-African American) 99.7 ml/min
[2024-02-16] MEDS ORDERED: GLYCOPYRROLATE 0.2 MG/ML VIAL ONE (08:19)
[2024-02-16] MEDS ORDERED: DEXAMETHASONE SOD INJ 4 MG/ML VIAL ONE ×3 (08:19→09:54)
[2024-02-16] MEDS ORDERED: ONDANSETRON INJ 2 MG/ML 2 ML VIAL ONE (08:19)
[2024-02-16] MEDS ORDERED: ROCURONIUM BROMIDE 10 MG/ML 5 ML VIAL IV ONE ×3 (08:19→09:54)
[2024-02-16] MEDS ORDERED: PHENYLEPHRINE HCL 10 MG/ML VIAL ONE (08:22)
[2024-02-16] MEDS: LACTATED RINGER'S 1,000 ML IV SCH (08:56)
[2024-02-16] MEDS ORDERED: fentaNYL citrate PF 100 MCG/2 ML VIAL IV PRN (09:27)
[2024-02-16] MEDS ORDERED: DROPERIDOL 5 MG/2 ML VIAL IV PRN (09:27)
[2024-02-16] MEDS ORDERED: ATROPINE SULFATE 0.1 MG/ML 10ML SYR IV PRN (09:27)
[2024-02-16] MEDS ORDERED: ePHEDrine sulfate 50 MG/ML AMP IV PRN (09:27)
[2024-02-16] MEDS ORDERED: SUCCINYLCHOLINE CHLORIDE 20 MG/ML 10 ML VIAL IV ONE (09:54)
[2024-02-16] MEDS ORDERED: SUGAMMADEX SODIUM 200 MG/2 ML VIAL IV ONE ×2 (10:07)
--- NOTE | 2024-02-16 10:40 | Procedure Note ---
Procedure Note: Bronchoscopy Procedure PREOPERATIVE DIAGNOSIS: Hemoptysis POSTOPERATIVE DIAGNOSIS: Hemoptysis PROCEDURE PERFORMED: Flexible fiberoptic bronchoscopy with bronchial lavage and transbronchial biopsies COMPLICATIONS: None. INDICATION: To find out the source of hemoptysis PROCEDURE: After obtaining an informed consent, the patient was brought to the OR. The patient had appropriate oxygen, blood pressure, heart rate, and respiratory rate monitoring applied and monitored continuously throughout the procedure. Sedation was managed by anesthesia, please refer to their note Bronchoscope was advanced with the ETT. As soon as I entered the ET tube I could see blood around the ETT tube. There was blood appreciated at the nancy as well as the right main and the left main bronchus. I gradually suctioned the left lung first followed by the right lung to make it clear. After suctioning the trachea appeared normal.The bronchoscope was then advanced through the nancy, which was sharp. The scope was then advanced into the right main stem and each segment, subsegement in the right upper lobe, right middle lobe and right lower lobe were visualized. There was copious amount of bloody secretions which were suctioned. There were no other findings including evidence of mass, anatomic distortions, or hemorrhage. The bronchoscope was subsequently withdrawn and advanced into the left mainstem. Again, each segment and subsegment was well visualized. No specific masses or other lesions were identified throughout the tracheobronchial tree on the left. There was significant amount of bloody secretion which were suctioned Right upper lobe anterior segment there was an attached clot versus lesion, forceps biopsy were taken. Right upper lobe apical segment, there was endobronchial lesion appreciated, multiple forceps biopsy were taken The bronchoscope was then wedged in the right upper lobe apical segment and bronchoalveolar lavage samples were obtained. 120 ml of saline was instilled and 45 ml of fluid was aspirated back.The bronchoscope was withdrawn and the area was suctioned clear. I again visualized each segment and subsegment of the right upper right middle right lower as well as left upper, lingula and left lower. No clear site of bleeding was appreciated. The bronchoscope was then withdrawn to the mainstem. The area was suctioned clear. The bronchoscope was then withdrawn gradually while retracting the ET tube to make sure there was no lesion in the upper trachea. No lesion to cause bleeding was appreciated within the upper trachea. The patient tolerated the procedure well without evidence of desaturation or complications. Bronchoalveolar lavage samples were sent for cell count, Gram stain and bacterial culture, AFB culture and smear, fungal culture and smearand cytology. Transbronchial biopsies were sent for pathology. Recommendations: Follow-up micro, cytology and pathology Follow-up chest x-ray Please note the above document was generated using voice recognition software. It may contain grammatical, syntax or spelling errors.Any formal questions or concerns about the content, text or information contained within the body of this dictation should be directly addressed to the provider for clarification. [facility] [place] Codes (Charges) Pulmonary/Thoracic Procedure 1: Pulmonary and Thoracic: 13714 Dx bronchoscopy/BAL Procedure 2: Pulmonary and Thoracic: 15792 Bronchoscopy w bronchial or endobronchial bx
--- NOTE | 2024-02-16 11:10 | XRay Report ---
SINGLE VIEW CHEST CLINICAL HISTORY: Status post bronchoscopy. FINDINGS: 2 AP, portable, upright chest radiographs are compared to study dated 02/15/2024 and correla corky with chest CT dated 02/09/2024. The examination is degraded by portable technique and apical lordo tic positioning. The heart is mildly enlarged. The pulmonary vasculature is noncongested. Chronic int erstitial thickening similar to previous. There is dense airspace consolidation in the right upper lars ng. Left lung appears clear. No large pleural effusion is seen. No pneumothorax is seen. The skeletal structures are osteopenic. The bony thorax is grossly intact. Arthritic changes seen in the left joseph ulder. Intrathecal leads project over the lower thoracic spine. IMPRESSION: 1. No pneumothorax is identified post procedure. 2. There is dense airspace consolidation in the right upper lung, which could represent postbiopsy ch maddi/hemorrhage. This is new from 02/15/2024 and a superimposed pneumonia is not excluded. Clinical co rrelation will be required and radiographic follow-up to resolution is recommended. ACT 112: Negative or not required by law. Electronically signed by: Lalo Wilson M.D. 02/16/2024 11:08 AM
[2024-02-16] MEDS: ALBUT/IPRATROP 3MG/0.5MG NEB 3 ML VIAL NEB PRN (11:26)
[2024-02-16] MEDS: methylPREDNISolone 40 MG in SYRINGE 0 ML IV ONE (11:45)
[2024-02-16] MEDS: UMECLIDINIUM/VILANTEROL 62.5/25MCG 7 PUFFS/INHALER INH SCH (13:14)
[2024-02-16] MEDS: allopurinoL 100 MG TAB PO SCH (13:15)
[2024-02-16] MEDS: amLODIPine BESYLATE 5 MG TAB PO SCH (13:15)
[2024-02-16 13:40] LABS: Fluid Mono/Macrophage 86 %; Lymphocyte Body Fluid Man 2 %; Neutrophil Body Fluid Man 12 %
[2024-02-16] MEDS: VENLAFAXINE HCL XR 150 MG CAPXR PO SCH (13:49)
--- NOTE | 2024-02-16 14:45 | Anesthesiology Progress Note ---
Date of Service February 16, 2024 Anesthesia Post Procedure Vital Signs Vital Signs: Temp Pulse Pulse Pulse Resp BP BP 02/16/24 13:28 02/16/24 12:55 36.9 C 71 20 124/75 02/16/24 12:20 71 17 121/77 02/16/24 12:10 68 18 101/67 02/16/24 12:00 36.6 C 65 16 117/81 02/16/24 11:50 69 16 120/73 02/16/24 11:40 66 13 112/85 02/16/24 11:30 65 17 116/74 02/16/24 11:21 02/16/24 11:20 68 17 126/72 02/16/24 11:10 73 19 116/75 02/16/24 11:00 73 20 123/74 02/16/24 10:50 75 18 125/78 02/16/24 10:44 02/16/24 10:40 82 18 145/81 H 02/16/24 10:33 36.0 C L 85 15 144/89 H 02/16/24 08:57 36.8 C 60 16 133/90 02/16/24 08:03 37 C 63 16 125/80 02/16/24 08:00 60 02/16/24 03:15 36.3 C L 61 18 122/73 02/16/24 00:55 36.6 C 63 18 145/76 H 02/16/24 00:00 63 02/15/24 23:46 02/15/24 19:45 37.0 C 60 18 156/80 H 02/15/24 17:00 71 02/15/24 16:44 36.7 C 56 L 16 131/70 02/15/24 16:36 02/15/24 15:57 65 02/15/24 15:56 65 18 140/82 02/15/24 15:13 66 Pulse Ox O2 Del Method O2 Flow Rate 02/16/24 13:28 94 Room Air 02/16/24 12:55 91 Nasal Cannula 3 02/16/24 12:20 91 Nasal Cannula 3 02/16/24 12:10 93 Nasal Cannula 3 02/16/24 12:00 91 Nasal Cannula 4 02/16/24 11:50 95 Oxymask 10 02/16/24 11:40 93 Oxymask 10 02/16/24 11:30 94 Oxymask 10 02/16/24 11:21 Mechanical Vent 02/16/24 11:20 92 Oxymask 10 02/16/24 11:10 91 Oxymask 10 02/16/24 11:00 93 Oxymask 10 02/16/24 10:50 93 Oxymask 10 02/16/24 10:44 Room Air 02/16/24 10:40 92 Oxymask 10 02/16/24 10:33 90 Oxymask 10 02/16/24 08:57 95 Room Air 02/16/24 08:03 95 Room Air 02/16/24 08:00 02/16/24 03:15 93 Room Air 02/16/24 00:55 95 Room Air 02/16/24 00:00 02/15/24 23:46 Room Air 02/15/24 19:45 94 Room Air 02/15/24 17:00 02/15/24 16:44 95 Room Air 02/15/24 16:36 Room Air 02/15/24 15:57 02/15/24 15:56 95 Room Air 02/15/24 15:13 Transfer of Care Handoff Completed per policy Notes Mental Status: alert / awake / arousable and participated in evaluation Nausea / Vomiting: adequately controlled Pain: adequately controlled Airway Patency, RR, SpO2: stable & adequate BP & HR: stable & adequate Hydration State: stable & adequate Anesthetic Complications: no major complications apparent and Pt Satisfied with anesthetic care
[2024-02-16] MEDS ORDERED: predniSONE 20 MG TAB PO ONE (14:56)
[2024-02-16 15:42] VITALS: RESP 18; TEMP 98.2
[2024-02-16 16:18] VITALS: O2SAT 96
[2024-02-16 16:28] VITALS: BP 124/75; PULSE 76
--- NOTE | 2024-02-16 17:54 | Discharge Summary ---
Discharge Summary Date of Service February 16, 2024 Principal Dx & Hospital Course #1 = Principal Diagnosis (1) Cough with hemoptysis: 63 y/o man on aspirin for history of coronary artery disease with remote stent, recently started treatment for RUL pneumonia (doxycycline, cefdinir) on 02/08, admitted with hemoptysis the hemoptysis is an acute on chronic problem he says he has had many episodes over several years but this current episode has been more prolonged than usual. Denies any epistaxis hematemesis or other potential source of bleeding. Has not had any chest pain or dyspnea. He has been followed by Dr. Olvera in pulmonary clinic and he has had screening chest CTs recently in 2022 and December 2023. he does have emphysema with some postinflammatory scarring of the right upper lobe and stable multiple solid pulmonary nodules seen on 12/2023 CT. CTA chest 02/08 negative for pulmonary embolism, limited quality PE study, progressive right upper lobe patchy airspace opacities consistent with any pneumonia. Stop aspirin Consulted pulmonology, bronchoscopy completed today see procedure note, discussed with Dr. Hanson, there was no clear source of bleeding although blood was present bilaterally, biopsies were taken from 2 areas of the right upper lobe 1 may have been a clot versus endobronchial lesion the other was an endobronchial lesion. - Follow-up pathology, cytology, cultures from BAL - multiple rheumatology labs drawn today per Dr. Hanson's recommendations - reviewed follow-up chest x-ray after bronchoscopy, no evidence of pneumothorax - per pulmonary recommendations prescribed Mucinex DM twice daily for a week and 7-day course of prednisone No risk factors for TB to warrant testing as discussed with pulmonology Mr. Tao insisted on discharge home today, although I consider this an irregular discharge because I counseled him and rather observe him overnight and make sure that he is stable with respect to his hemoptysis. He says he has had it many times and he is not going to stay here and wait around for results doing nothing. He will complete his oral antibiotics course for pneumonia. I warned him about risks of massive hemoptysis which could include respiratory failure and counseled him to seek immediate medical attention were he to have worsening hemoptysis, chest pain, dyspnea. his was also present. nevertheless I think it is reasonably low risk because no discrete bleeding source was identified on bronchoscopy because of the chronicity of the problem. He has a follow-up appointment scheduled with Dr. Ramirez on 03/12, we will see whether this can be moved up to about 2 weeks from now (2) Right upper lobe pneumonia: Diagnosed 02/08 Procalcitonin negative and CXR improving therefore will continue on his prior prescription of cefdinir and doxycycline through 02/18 (3) Tobacco abuse: Declines nicotine patch Counseled cessation Plan CAD - hx stent in 2009. HOLD aspirin until hemoptysis resolved, cont atorvastatin Hypertension - continue amlodipine and lisinopril BPH - continue tamsulosin Paroxysmal atrial fibrillation - no anticoagulation due to hemoptysis, continue sotalol Chronic gout - no acute flare, continue allopurinol Anxiety - continue venlafaxine COPD - no acute flare, continue maintenance inhalers Chronic back pain - continue routine pain regimen JENNY - does not use CPAP Notes For Next Care Provider bronchoscopy results including BAL cultures, cytology, pathology from right upper lobe biopsies endobronchial lesion, multiple labs for rheumatologic workup are pending Medication Changes From Visit stopped aspirin, added Mucinex DM, added 7-day course of prednisone, continue oral antibiotics for pneumonia Admission HPI Per Admitting Provider Edward Tao is a 63 year old male who presents to the ER on advice of his literature teacher due to ongoing hemoptysis. He was recently seen in the emergency room on February 08 for taiwo hemoptysis with a diagnosis of right upper lobe pneumonia at that time. Admission was recommended with IV antibiotics however the patient declined and was discharged on cefdinir and doxycycline for 10 days which she is still taking. Hemoptysis initially improving when he followed up with pulmonology. But then worse again for last 2 days therefore advised by his literature teacher to return to the ER for consideration of bronchoscopy. He reports hemoptysis now ongoing for the last 3 weeks. However this has been and intermittent issue for the last 3-4 years but this episode has stayed a lot longer. No fever or chills. No chest pain. Shortness of breath at baseline. He continues to smoke 1 pack/day. No known close contact with patient's of untreated respiratory TB, no illicit drug use, patient is not a healthcare worker, resident or employee of a homeless alf at correctional facility. Discharge Exam PHYSICAL EXAMINATION Last 24h vital signs reviewed, see documentation in flowsheet General: comfortable appearing, no distress, sitting on edge of bed HEENT: Normocephalic, atraumatic, pupils round and equal, sclerae anicteric, no conjunctival injection, moist mucus membranes Lungs: Normal respiratory effort. coarse breath sounds right upper lobe greater than left upper lobe no wheezing. frequent coughing with blood-streaked sputum Heart: Regular rate and rhythm, no murmurs. No JVD Abdomen: Soft, nontender, nondistended. Bowel sounds present. Extremities: Warm, dry, well-perfused. trace lower extremity edema. Neuro: Alert and oriented x 4, face symmetric, moves 4 extremities well Psych: Normal affect and behavior Discharge Plan Discharge Items Patient Disposition: Home - Self-Care Reason For Visit: HEMOPTYSIS Discharge Diagnosis: hemoptysis Activity: Resume your previous activity Non-emergency contact: Primary Care Provider and [employer] Call non-emergency contact if: you have any medication questions, your symptoms worsen and you have a fever Follow-up/Referrals: Speedy Ramirez MD [Physician] - Panda Gary DO [Primary Care Provider] - Diet: Heart Healthy Addtl Attending Provider Instructions: You had bronchoscopy evaluation for hemoptysis (coughing up blood) Dr. Hanson took biopsies of two lesions but he did not see a clear source of bleeding. Many blood tests are pending to look for a cause of the recurrent bleeding - these may take 1-2 weeks to result. Biopsy results and microbiology results will take about a week. You already have a follow-up appointment scheduled with Dr. Ramirez in about a month - its a good idea to call the clinic and see if the appointment can be moved up to around two weeks from now to follow up the results STOP taking aspirin for now Dr. Hanson recommends Mucinex DM for seven days (buy over the counter) and a course of prednisone (anti-inflammatory) Also keep taking your antibiotics until they run out We strongly advise quitting smoking I would prefer you stay at least overnight for monitoring of symptoms, to make sure you are stable after procedure If you are coughing up a significantly increased amount of blood, have shortness of breath, or chest pain call 911 Pending Studies at Discharge: Yes Stand-Alone Forms: My [facility] [employer], Smoking Cessation Medications and DC Order Prescriptions: New dextromethorphan-guaifenesin [Mucinex DM] 60-1,200 mg tablet extended release 12 hr 1 tab PO BID Qty: 14 0RF Rx Instructions: buy over the counter, take for 7 days prednisone 10 mg tablet See Taper PO DIRECTED Qty: 13 0RF Taper: Taper, Blank 40 mg DAILY for 1 Day 30 mg DAILY for 1 Day 20 mg DAILY for 2 Days 10 mg DAILY for 2 Days Rx Instructions: see taper instructions Continued tamsulosin 0.4 mg capsule 0.4 mg PO HS sotalol 80 mg tablet 80 mg PO BID venlafaxine 150 mg capsule,extended release 24hr 150 mg PO HS ezetimibe [Zetia] 10 mg tablet 10 mg PO HS atorvastatin 20 mg tablet 20 mg PO HS Anoro Ellipta 62.5-25 mcg/actuation blister with device 1 inh inhalation DAILY Qty: 60 3RF diphenhydramine HCl [Allergy Relief(diphenhydramin)] 25 mg capsule 100 mg PO HS PRN (Reason: ALLERGIES) cefdinir 300 mg capsule 300 mg PO BID 10 Days Qty: 20 0RF Rx Instructions: Start Date 01/26/24 x10 day supply doxycycline hyclate 100 mg tablet 100 mg PO Q12H 10 Days Qty: 20 0RF Rx Instructions: Start Date 01/26/24 x10 day supply allopurinol 100 mg tablet 100 mg PO QAM hydrocodone-acetaminophen 10-325 mg tablet 1 tab PO TID PRN (Reason: Pain) amlodipine 10 mg tablet 10 mg PO QAM lisinopril 40 mg tablet 40 mg PO HS Held aspirin 325 mg tablet,delayed release (DR/EC) 325 mg PO QAM Hold Instructions: Resume on 03/15/24. hold until cause of lung bleeding is found/resolved Discharge Orders: Discharge Order (Routine); Ordered 02/16/24 Ordered By: Lexy Benitez Admission Data Admit Date/Time: 02/15/24 12:46 Attending Provider: Lexy Benitez Admit Provider: Cresencio Pelayo Primary Care Provider: Panda Gary Other Providers: Cresencio Pelayo; Niki Hanson Other Interventions: Discharge Summary Assessment (RN) Last Done: 02/16/24 16:26 Hospital Stay Data Consultations 02/15/24 12:42 ED Decision to Admit Stat 02/15/24 12:46 Consult Pulmonology Routine Procedures Performed Operation Date: 02/16/24 09:45 Actual Procedures p Bronchoscopy(Not Applicable) - Niki Hanson MD, [facility] Pending Results Patient Have Any Pending Studies at Discharge: Yes Discharge Instructions Given to Patient (Per Discharging Provider) You had bronchoscopy evaluation for hemoptysis (coughing up blood) Dr. Hanson took biopsies of two lesions but he did not see a clear source of bleeding. Many blood tests are pending to look for a cause of the recurrent bleeding - these may take 1-2 weeks to result. Biopsy results and microbiology results will take about a week. You already have a follow-up appointment scheduled with Dr. Ramirez in about a month - its a good idea to call the clinic and see if the appointment can be moved up to around two weeks from now to follow up the results STOP taking aspirin for now Dr. Hanson recommends Mucinex DM for seven days (buy over the counter) and a course of prednisone (anti-inflammatory) Also keep taking your antibiotics until they run out We strongly advise quitting smoking I would prefer you stay at least overnight for monitoring of symptoms, to make sure you are stable after procedure If you are coughing up a significantly increased amount of blood, have shortness of breath, or chest pain call 911 Total Time Total Time Spent Total Time Spent (In Minutes): I personally spent: 45 minutes today on clinical care activities including: reviewing chart notes and vital signs reviewing labs reviewing studies discussion with ada accommodation consultant(s) examining and counseling the patient counseling the patient's family writing orders, discharge instructions documentation Coding Level of Care Code 00753 INP/OBS DISCH >30 MIN Diagnoses Cough with hemoptysis R04.2 Right upper lobe pneumonia J18.9 Tobacco abuse Z72.0
[2024-02-22 19:52] LABS: Source BAL RUL
[2024-02-23 13:32] LABS: ANCA Screen Negative (Negative); Anti-Centromere Ab <1.0 NEG AI (<1.0 NEG); Anti-Glom Basement Antibody <1.0 AI (<1.0); Anti-Neutrophil Antibody NONE DETECTED (NONE DETECTED); Anti-SS-A <1.0 NEG AI (<1.0 NEG); Anti-SS-B <1.0 NEG AI (<1.0 NEG); Anti-dsDNA Recombinant <1 IU/mL; Cyclic Citrullinated Pep IgG <16 UNITS; JO 1 Antibody <1.0 NEG AI (<1.0 NEG); Myeloperoxidase Ab 3.1 AI (<1.0); Proteinase-3 AB <1.0 AI (<1.0); RNP Antibody <1.0 NEG AI (<1.0 NEG); Rheumatoid Factor <10 IU/mL (<14); Sm Antibody <1.0 NEG AI (<1.0 NEG)
== END 2024-02-16 16:50 | disposition home or self-care (01) | DRG 194 ==
LOC: ED 10:44 → SUATTDRO 12:46 → EDINP 12:46 → INTOOBSV 12:46 → 2N 15:43